=== PATIENT | female | born 1945 | race Two or more races ===

== ENCOUNTER 2017-11-28 21:27 | Emergency (ER) | payer OTHER ==
[~2017-11-28] VITALS: Ht 154.9 cm; Wt 77.1 kg
[2017-11-28 21:39] VITALS: BP 155/55
[2017-11-28 22:16] LABS: Basophils # (auto) 0 uL; Basophils % (auto) 0.6 % (0.0-2.0); Eosinophils # (auto) 0.1 uL; Eosinophils % (auto) 1.6 % (0.0-7.0); Hematocrit 33.5 % (36.0-46.0); Lymphocytes # (auto) 1.3 uL; Lymphocytes % (auto) 18.5 % (10.0-50.0); Mean Corpuscular Hemoglobin 31.5 pg (28.0-32.0); Mean Corpuscular Hgb Conc. 32.9 g/dL (32.0-36.0); Mean Corpuscular Volume 95.9 fL (80.0-100.0); Monocytes # (auto) 0.6 uL; Monocytes % (auto) 8.6 % (0.0-12.0); Neutrophils # (auto) 4.8 uL; Neutrophils % (auto) 70.7 % (37.0-80.0); Nucleated Red Blood Cells % 0.1 %; Platelet Count (auto) 160 10^3/uL (140-450); Red Blood Cells 3.49 10^6/uL (4.0-5.20); Red Cell Distribution Width 14.4 % (11.8-14.3); White Blood Cell 6.8 10^3/uL (4.4-10.8)
[2017-11-28 22:44] LABS: Anion Gap 9 (5-15); Blood Urea Nitrogen 44 mg/dL (7-18); Carbon Dioxide 22 mmol/L (21-32); Chloride 109 mmol/L (98-107); Glucose 288 mg/dL (74-106); Potassium 4.7 mmol/L (3.5-5.1); Sodium 140 mmol/L (136-145)
[2017-11-28 22:45] LABS: Alanine Aminotransferase 14 U/L (13-56); Aspartate Aminotransferase 14 U/L (15-37); BUN/Creatinine Ratio 20.4; Calcium 8.6 mg/dL (8.5-10.1); GFR African American 29 mL/min; GFR Non-African American 24 mL/min
[2017-11-28 22:49] LABS: Alkaline Phosphatase 106 U/L (45-117); Bilirubin, Total 0.5 mg/dL (0.2-1.0); Total Protein 7.4 g/dL (6.4-8.2)
== END 2017-11-28 23:49 | disposition left against medical advice (07) ==
LOC: EDBD 21:27 → ER 21:29
DX: R07.9 Chest pain, unspecified (principal); R06.02 Shortness of breath; Z53.21 Procedure and treatment not carried out due to patient leaving prior to being seen by health care provider
CPT/HCPCS: 36415; 71045; 80053; 83880; 84484; 85025; 93005